=== PATIENT | male | born 1980 | race Caucasian/White ===

== ENCOUNTER → 2017-08-08 | Outpatient (CLI) | payer BC ==
--- NOTE | 2017-08-08 09:21 | CT ---
EXAMINATION TYPE: CT sinus wo con DATE OF EXAM: 08/08/2017 COMPARISON: NONE HISTORY: Chronic sinusitis in right-sided polyps per order. Headaches and sinus congestion for 3+ mon ths per patient. CT DLP: 614 mGycm. Automated Exposure Control for Dose Reduction was Utilized. TECHNIQUE: CT scan of the sinuses is performed without contrast, axial images are obtained, coronal r eformatted images are also reviewed. FINDINGS: There is moderate to severe mucosal thickening in the left maxillary sinus. There is comple tely opacified right maxillary sinus with soft tissue bulging into antrum causing blockage of the rig ht ostiomeatal complex. There is completely opacified right frontal and nearly completely opacified h eterogeneous hypodense left frontal sinus. There is near complete opacification of ethmoid sinuses bi laterally with some sparing of the posterior right ethmoid sinuses. There is mild to moderate mucosal thickening in the left maxillary sinus with air-fluid level. There is mild mucosal thickening in the right maxillary sinus. Left-sided ostiomeatal complex is also blocked. There is bone forming lesion right middle cranial fossa at level of maxilla measuring roughly 3.0 x 3 .0 cm transversely coronal image 57 x 3.0 cm AP diameter axial image 18, this lesion shows areas of b one destruction for reference coronal image 64 just superior to temporomandibular joint and areas of bone formation and debris formation along level of the lateral pterygoid muscle. Visualized portion of mastoid air cells show no abnormal opacification. The globes are intact bilate rally. IMPRESSION: 1. Significant acute on chronic paranasal sinus disease as detailed above with blockage of bilateral ostiomeatal complex. 2. 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 Clinical Correlate with palpable findings or signif icant interval growth. Advise oncology referral either to ENT or orthopedic surgeon to further asses s this area to consider for possible biopsy.
== END | disposition home or self-care (01) ==
LOC: RADCTMAIN 08:36
PROVIDERS: ATTEND Otolaryngology
DX: J34.89 Other specified disorders of nose and nasal sinuses (principal); M89.9 Disorder of bone, unspecified; J33.8 Other polyp of sinus
CPT/HCPCS: 70486

== ENCOUNTER 2017-09-05 07:52 | Day surgery (SDC) | payer BC ==
[2017-09-04 12:25] VITALS: BMI 23.6
[~2017-09-05 07:52] MED LIST: DEXAMETHASONE SOD PHOSPHATE 10 MG/ML 1 ML VIAL IV ONE; DEXAMETHASONE SOD PHOSPHATE 4 MG/ML 1 ML VIAL IV ONE; FAMOTIDINE 20 MG/2 ML VIAL IV ONE; HYDROmorphone 0.5 MG/0.5 ML SYRINGE IVP PRN; LACTATED RINGERS 1,000 ML IV SCH; MORPHINE SULFATE 4 MG/ML SYRINGE IVP PRN; ONDANSETRON 4 MG/2 ML VIAL IVP ONE; SCOPOLAMINE 1.5MG/72HR PATCH TRANSDERM ONE; ceFAZolin 1,000 MG in DEXTROSE/WATER 1 50ML.BAG IV ONE
[2017-09-05] MEDS: OXYMETAZOLINE 0.05% NASL SPRAY 1 SPRAY BOTTLE NASAL ONE ×5 (08:53→09:13)
[2017-09-05] MEDS ORDERED: LIDOCAINE 1% 20 ML VIAL (10MG/ML) FOR IV START INTRADERMA ONE (09:10)
[2017-09-05] MEDS ORDERED: SUCCINYLCHOLINE CHLORIDE 100 MG/5 ML SYR IV ONE (10:10)
[2017-09-05] MEDS ORDERED: LIDOCAINE 1% INJ 10MG/ML (20 ML MDV) ONE (10:10)
[2017-09-05] MEDS ORDERED: fentaNYL (PF) 50 MCG/ML 2 ML AMP ONE (10:10)
[2017-09-05] MEDS ORDERED: MIDAZOLAM 2 MG/2 ML VIAL ONE (10:10)
[2017-09-05] MEDS ORDERED: MEPERIDINE 50 MG/ML SYRINGE ONE (10:10)
[2017-09-05] MEDS ORDERED: PROPOFOL 10 MG/ML 20 ML VIAL IV ONE (10:10)
[2017-09-05] MEDS ORDERED: KETOROLAC 30 MG/ML 1 ML VIAL ONE (10:10)
[2017-09-05] MEDS ORDERED: BACITRACIN 500 UNIT/GM OINT 28.4 GM TUBE TOPICAL ONE (10:30)
[2017-09-05] MEDS ORDERED: LIDOCAINE 1%-EPI 1:100,000 20 ML VIAL SQ ONE ×2 (10:30)
--- NOTE | 2017-09-05 11:41 | P.OP ---
Date of Procedure: 09/05/17 Preoperative Diagnosis: Deviated nasal septum Inferior turbinate hypertrophy Sinonasal polyposis Chronic sinusitis Postoperative Diagnosis: Same Procedure(s) Performed: Septoplasty Outfracture and submucous resection of the inferior turbinates Bilateral endoscopic sinus surgery including bilateral maxillary antrostomy with removal of tissue from the maxillary sinuses, bilateral anterior and posterior ethmoidectomy bilateral frontal sinusotomy and bilateral sphenoid sinusotomy with removal of tissue from frontal and sphenoid sinuses and balloon sinus plasty of the frontal and sphenoid sinuses Anesthesia: ROCKA Surgeon: Andrew Cross Estimated Blood Loss (ml): 10 Pathology: other (Nasal septal bone and cartilage and sinus contents) Condition: stable Disposition: PACU Indications for Procedure: This is a 37-year-old white male with chronic history of nasal airway obstruction and congestion as well as recurrent sinusitis. He was noted to have a deviated septum inferior turbinate hypertrophy and chronic sinusitis as well as sinonasal polyps on physical exam and on computed tomography scan Operative Findings: Nasal septum deviated to the left with inferior turbinate hypertrophy bilaterally. Diffuse polyps bilaterally throughout the sinuses. Also mucosal thickening in the sphenoid and frontal sinuses although right greater than left with an antrochoanal polyp on the right. Description of Procedure: The patient was brought in the operative suite and placed in a supine position. The patient underwent induction of general anesthesia with oral endotracheal intubation without difficulty. The patient was prepped and draped using aseptic fashion. The orbits were in the operating field for monitoring to the case and computed tomography scan was on the computer screen throughout the case for review. 1% lidocaine with 1 100,000 epinephrine was infused subcu closely both sides nasal septum as well as lateral nasal wall bilaterally. This was left to work for 7 minutes vasoconstrictive effect and while this was working inferior turbinates were infractured with the Hopewell elevator and then submucosal was partially ablated with the Coblation wand and then outfractured with the Hopewell elevator. A left hemitransfixion incision was made with the mucoperichondrial nasal fracture flap on the left elevated. Bony cartilaginous junction was disarticulated and mucoperiosteal flap on the right was elevated. Bony nasal septal deformities were removed Addi forceps. An inferior cartilaginous strip was removed leaving a full 1.5 cm caudal strut. Checking intranasally this corrected the nasoseptal deformities and the hemitransfixion incision was closed with a running 4-0 chromic suture. Full 0 endoscopic examination was then performed bilaterally. Beginning on the left the middle turbinate was medialized with a Terril elevator. The maxillary ostium was located with a ballpoint probe and infundibulotomy was performed followed by uncinectomy. Gross polypectomy was performed with the microdebrider the middle meatus. Next antrostomy was enlarged at the expense of the anterior and posterior fontanelle taking care anteriorly not to injure the lacrimal bone. The maxillary Sinus was explored with 30 and 70 endoscope and polyps were removed with giraffe forceps and curved suction. The anterior posterior ethmoidectomy then performed with polypectomy with microdebrider. The frontal and sphenoid sinuses were dilated with balloon sinus plasty technique using the [employer] balloon sinus plasty instrumentation and then the sinuses were explored with endoscopy. Once this was completed attention was turned to the right where the procedures were followed as they had been on the left including infundibulotomy uncinectomy maxillary antrostomy with removal of polyps from the maxillary sinus anterior and posterior ethmoidectomy and frontal and sphenoid sinusotomy with exploration. Once this was completed standard nasal pore nasal dressing was placed the middle meatus under direct visualization. The Hutchinson airway splints coated bacitracin ointment were placed in the nasal cavities and sutured trans-septally with a 4-0 Vicryl suture. The patient was suctioned in oral gastric fashion. The patient was allowed to emerge from general anesthesia having tolerated procedure well was extubated in the operating suite and transferred postoperative recovery area in satisfactory condition.
[2017-09-05 11:50] VITALS: TEMP 97
[2017-09-05 11:59] VITALS: RESP 16
[2017-09-05 13:37] VITALS: BP 135/78; PULSE 72
== END 2017-09-05 13:39 | disposition home or self-care (01) ==
LOC: OR 07:52
PROVIDERS: ATTEND Otolaryngology
DX: J34.2 Deviated nasal septum (principal); J32.9 Chronic sinusitis, unspecified; J34.3 Hypertrophy of nasal turbinates; K21.9 Gastro-esophageal reflux disease without esophagitis; Z79.2 Long term (current) use of antibiotics; Z79.52 Long term (current) use of systemic steroids; Z79.899 Other long term (current) drug therapy; Z91.09 Other allergy status, other than to drugs and biological substances; J33.8 Other polyp of sinus
CPT/HCPCS: 88300; 88305

== ENCOUNTER → 2021-02-02 | Outpatient (CLI) | payer BC ==
--- NOTE | 2021-02-02 07:55 | CT ---
EXAMINATION TYPE: CT sinus wo con DATE OF EXAM: 02/02/2021 COMPARISON: 08/08/2017 HISTORY: sinusitis CT DLP: 667.[address] of the paranasal sinuses was performed in the axial and coronal planes. Bone and soft tissue settings are submitted. Again noted is extensive change of pansinusitis with greatest involvement of the ethmoid air cells an d maxillary sinuses. There is obstruction of the bilateral ostiomeatal units. Underlying polyposis is difficult to exclude. The nasal septum is midline. Again noted is bone forming lesion right middle cranial fossa at level of maxilla measuring roughly 2 .9 x 2.5 cm versus 3.0 x 3.0 cm previously seen best on axial image 28 of 92. The lesion shows areas of bone destruction for reference coronal image 64 just superior to temporomandibular joint and areas of bone formation and debris formation along level of the lateral pterygoid muscle. IMPRESSION: 1. Severe pansinusitis versus underlying polyposis. 2. Essentially stable lesion right middle cranial fossa as noted above. Differential diagnostic possi bilities include fibrous dysplasia however osteosarcomas not excluded.Advise oncology referral either to ENT or orthopedic surgeon to further assess this area to consider for possible biopsy.
== END | disposition home or self-care (01) ==
LOC: RADCTMAIN 06:25
PROVIDERS: ATTEND Otolaryngology
DX: J32.4 Chronic pansinusitis (principal)
CPT/HCPCS: 70486